=== PATIENT | male | born 1940 | race Two or more races ===

== ENCOUNTER 2025-03-31 19:37 | Emergency (ER) | payer MEDICARE, MEDICAID, SELFPAY ==
[2025-03-31 19:38] VITALS: BMI 27.4
[2025-03-31 20:13] VITALS: BP 166/78; PULSE 64; RESP 18; TEMP 36.9; O2SAT 95
--- NOTE | 2025-03-31 20:26 | XR_ITS ---
Examination: Foot bilateral, 6 views Technique: AP, oblique, lateral views each foot total 6 views Date and time of exam: March 31, 20252028 hours INDICATIONS: Bilateral foot swelling beginning 2 months ago FINDINGS: Bilateral prominent soft tissue swelling dorsum of each foot Prominent bilateral bunion deformities Severe osteopenia No acute fractures No radha areas of cortical bone destruction IMPRESSION: No radha areas of cortical bone destruction, however, elective MRI right and left foot follow-up would best assess for early osteomyelitis as well as soft tissue abscess
--- NOTE | 2025-03-31 20:26 | EDRME_ITS ---
Rapid Medical Screening Exam [facility] Arrival date/time: 03/31/25 19:37 84M with history of HTN presents to ED with daughter for 2 months of intermittent BLE swelling. Patient was given Lasix, which helped, but the feet swelling is persistent. Patient denies pain and SOB. Chief Complaint: Extremity Problem,Nontraumatic Vital signs: Vital Signs Temperature 98.5 F 03/31/25 20:13 Pulse Rate 64 03/31/25 20:13 Respiratory Rate 18 03/31/25 20:13 Blood Pressure 166/78 H 03/31/25 20:13 Pulse Oximetry (%) 95 03/31/25 20:13 Oxygen Delivery Method Room Air 03/31/25 20:13
--- NOTE | 2025-03-31 20:26 | XR_ITS ---
Examination: Ultrasound soft tissue extremities feet TECHNIQUE: Grayscale sonographic images soft tissue right and left feet Date and time: March 31, 2025 2108 hours INDICATIONS: Bilateral foot swelling beginning 2 months ago. FINDINGS: Edema in both feet but no discrete mass or cystic lesion IMPRESSION: Diffuse edema in the feet MRI right and left foot follow-up would be preferable in assessing for soft tissue abscess, osteomyelitis, as clinically warranted
[2025-03-31 20:59] LABS: Basophils # (Auto) 0.1 Thou/mm3 (0.0-0.2); Basophils % (Auto) 1 % (0-2.5); Eosinophils # (Auto) 0.5 Thou/mm3 (0.0-0.5); Eosinophils % (Auto) 8 % (0-10); Hematocrit 44.5 % (41.0-53.0); Hemoglobin 14.6 g/dL (13.5-16.0); Immature Granulocytes Auto 0.01 Thou/mm3 (0.00-0.00); Lymphocytes # (Auto) 2.5 Thou/mm3 (1.0-4.8); Lymphocytes % (Auto) 37 % (10-50); Mean Corpuscular HGB Conc 32.8 g/dl (31.0-37.0); Mean Corpuscular Hemoglobin 30.3 pg (25.0-35.0); Mean Corpuscular Volume 92 fL (80-100); Monocytes # (Auto) 0.6 Thou/mm3 (0.0-0.8); Monocytes % (Auto) 8 % (0-12); Neutrophils # (Auto) 3.0 Thou/mm3 (1.8-7.7); Neutrophils % (Auto) 45 % (37-80); Nucleated Red Blood Cell # 0.00 Thou/mm3 (0.00-0.00); Nucleated Red Blood Cell % 0 /100 WBC (0); Platelet Count 250 Thou/mm3 (140-440); RDW Standard Deviation 46.9 fL (35.1-43.9); Red Blood Count 4.82 Miln/mm3 (4.50-5.90); White Blood Count 6.7 Thou/mm3 (3.8-10.6)
[2025-03-31 21:14] LABS: B-Type Natriuretic Peptide < 20 pg/mL (0-100)
[2025-03-31 21:17] LABS: Alanine Aminotransferase 12 U/L (10-49); Albumin, Serum 4.5 gm/dL (3.4-4.8); Albumin/Globulin Ratio 1.7 (1.2-2.2); Alkaline Phosphatase 67 U/L (46-116); Anion Gap 10 (7-16); Aspartate Amino Transferase 19 U/L (0-34); BUN/Creatinine Ratio 17 Ratio (12-20); Bilirubin,Total 0.4 mg/dL (0.3-1.2); Blood Urea Nitrogen 24 mg/dL (9-23); C-Reactive Protein < 0.5 mg/dL (0.0-0.9); Calcium 10.3 mg/dL (8.3-10.6); Calcium (Corrected) 10.3 mg/dL (8.5-10.1); Carbon Dioxide 28.4 mMol/L (20.0-31.0); Chloride 105 mMol/L (98-107); Creatinine (Component) 1.4 mg/dL (0.6-1.3); Estimated Creatinine Clearance 35.9 mL/min (>60); Globulin 2.6 gm/dL (2.3-3.5); Glucose 87 mg/dL (74-106); Osmolality,Calculated 287 (275-295); Potassium 3.8 mMol/L (3.4-5.1); Sodium 143 mMol/L (136-145); Total Protein 7.1 gm/dL (5.7-8.2); eGFR 50 See Note
--- NOTE | 2025-03-31 21:25 | PD.EDEXREM ---
ED Extremity Problem RME/HPI General Chief complaint: Extremity Problem,Nontraumatic Stated complaint: BLE EDEMA Arrival date/time: 03/31/25 19:37 RME / HPI RME / HPI Narrative: 03/31/25 19:37 84M with history of HTN presents to ED with daughter for 2 months of intermittent BLE swelling. Patient was given Lasix, which helped, but the feet swelling is persistent. Patient denies pain and SOB. --------- Dr. 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 No shortness of breath. No history of CHF, hepatic insufficiency, or renal failure. PMH includes HTN, Parkinson's, no prior CVA/TIA/CO. PSH includes hip replacement. Related Data Home Medications ?Medication ?Instructions ?Recorded ?Confirmed oxybutynin chloride 10 mg 10 mg PO QDAY 09/16/20 01/15/22 tablet,extended release 24 hr benazepril 40 mg tablet 40 mg PO QDAY 12/16/20 01/15/22 omeprazole 40 mg capsule,delayed 40 mg PO QDAY 01/03/21 01/15/22 release clonidine HCl 0.1 mg tablet 0.1 mg PO QHS 01/15/22 01/15/22 furosemide 20 mg tablet 20 mg PO QDAY 01/15/22 01/15/22 Previous Rx's ?Medication ?Instructions ?Recorded cephalexin 500 mg capsule 500 mg PO TID #30 caps 01/06/24 bumetanide 1 mg tablet 1 mg PO QDAY #10 tabs 03/31/25 Allergies Allergy/AdvReac Type Severity Reaction Status Date / Time No Known Allergies Allergy Verified 03/31/25 19:38 Review of Systems Review of Systems Systems Reviewed: All systems reviewed, normal except as documented Past Medical History Past Medical History CARDIAC: Positive Cardiac Disorders, Hypercholesterolemia, Congestive Heart Failure and Hypertension RESPIRATORY: Negative Chronic Obstructive Pulmonary Disease (COPD) GENITOURINARY: Negative Renal Disease ENDOCRINE: Negative Diabetes Mellitus Type 1 or Diabetes Mellitus Type 2 Social History SMOKING STATUS: Never smoker ED Exam Narrative Physical exam: GENERAL APPEARANCE: alert and oriented x 4, well-developed, well-nourished, nontoxic, complains of bilateral foot swelling, no acute distress VITALS: All vitals were reviewed and the pulse ox is 95% on room air, which is normal according to my interpretation. HEENT: Normocephalic, atraumatic; pupils equal, round, reactive to light; EOMI; mucous membranes pink, moist; oropharynx clear NECK: Supple, no JVD LUNGS: Bibasilar rales HEART: Regular rate, regular rhythm; normal S1, S2; no murmurs ABDOMEN: non distended; normal BS; soft, no tenderness, no guarding, no rebound; no masses, no organomegaly, no hernia BACK: no CVA tenderness EXTREMITIES: atraumatic; trace edema down to the level of the ankle bilaterally; diffuse edematous feet with circumferential swelling of all 10 digits NEUROLOGIC: awake; alert and oriented x4; cranial nerves II-XII grossly intact; no focal sensory or motor deficits PSYCHIATRIC: appropriate mood and affect SKIN: warm, dry, normal color; no rashes Course Quality Measures none Orders Category Date Time Status EKG (ED ONLY) *Do not use* NOW Care 03/31/25 21:36 Completed EKG (ED Only) Stat Exams 03/31/25 21:36 Draft US extremity nonvascular LMTD Stat Exams 03/31/25 20:26 Completed XR chest 1V portable Stat Exams 03/31/25 21:36 Completed XR foot comp BI min 3V Stat Exams 03/31/25 20:26 Completed BNP [B-Type Natriuretic Peptide] Stat Lab 03/31/25 20:46 Completed CBC Stat Lab 03/31/25 20:46 Completed CMP [Comprehensive Metabolic Panel] Stat Lab 03/31/25 20:46 Completed CRP [C-Reactive Protein] Stat Lab 03/31/25 20:46 Completed ESR [Sed Rate (ESR)] Stat Lab 03/31/25 20:46 Completed Troponin I Stat Lab 03/31/25 20:46 Completed Bumetanide Inj [Bumex Inj] Med 03/31/25 23:13 Once 1 mg IVP X1 ONE Nitroglycerin Oint 2% [Nitro-paste Oint 2%] Med 03/31/25 23:12 Once 0.5 inch TOP X1 ONE hydrALAZINE INJ [Apresoline Inj] Med 03/31/25 23:12 Once 10 mg IVP X1 ONE Vital Signs Vital signs: Vital Signs Temperature 98.5 F 08/27/25 20:13 Pulse Rate 64 03/31/25 20:13 Respiratory Rate 18 03/31/25 20:13 Blood Pressure 166/78 H 03/31/25 20:13 Pulse Oximetry (%) 95 03/31/25 20:13 Oxygen Delivery Method Room Air 03/31/25 20:13 Extremity Problem MDM Narrative MDM Narrative:: Scribe Attestation: 03/31/25 - Becca Vega am scribing for and in the presence of Dr. Donahue. 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 No shortness of breath. Please see PE findings. Lab markers including CBC and chemistries are essentially unremarkable. No signs of CHF, hepatic insufficiency, or renal failure. Patient arrived hypertensive on arrival and was treated with IV alpha nithya and topical nitrates with gradual reduction in blood pressure. Suspect etiology of bilateral foot edema likely dependent in nature. Will recommend elevation of both extremities in addition to change in diuretic therapy from Lasix to Bumex. Precaution instructions issued. Dx: dependent edema. Patient data External records reviewed:: [facility] previous records (Per chart review, patient was seen here on 01/05/24 for cellulitis.) Clinical information provided by:: patient Social determinants that could affect healthcare access:: none Patient has the following chronic illnesses:: HTN, Parkinson's How is presenting disease/condition affected by chronic disease/condition?: uneffected by Evaluation data The following diagnostics were reviewed and interpreted by me:: lab results, radiology exam(s) and EKG tracing(s) Lab and/or radiology exams considered but not ordered:: none Interpretation Summary: EKG done at 2150, sinus rhythm, rate of 65, no acute pathological ST segment changes, no ectopy, left axis deviation, evidence of LVH by voltage criteria, according to my interpretation. [facility] Signed Patient: CHASIDY NICHOLS. Record#: [id number] Birthdate: 1940 Age/Sex: 84 / M Location: [facility] Attending Dr: Ordering Physician: Paddy Bay DO Date of Service: 03/31/25 Procedure(s): XR chest 1V portable Accession Number(s): [id number] cc: Paddy Bay DO; Joel Ramos MD; Tara Simeon PA-C~ Examination: AP chest single view Technique one AP portable upright chest single view Date and time: March 31, 20252 hours, comparison January 05, 2024 INDICATIONS: Chest pain weakness shortness of breath today. FINDINGS: Mild enlargement cardiac contour Moderate vascular congestion. No lobar pneumonia. Prominent osteopenia IMPRESSION: Moderate vascular congestion, no lobar pneumonia Dictated By: Joel Ramos MD Signed By: <Electronically signed by Joel Ramos MD in OV> 03/31/252148 [facility] Signed [facility] Record#: [id number] Birthdate: 1940 Age/Sex: 84 / M Location: [facility] Attending Dr: Ordering Physician: James Zhang PA-C Date of Service: 03/31/25 Procedure(s): XR foot comp BI min 3V Accession Number(s): [id number] cc: Joel Ramos MD; James Zhang PA-C; Tara Simeon PA-C~ Examination: Foot bilateral, 6 views Technique: AP, oblique, lateral views each foot total 6 views Date and time of exam: March 31, 20252028 hours INDICATIONS: Bilateral foot swelling beginning 2 months ago FINDINGS: Bilateral prominent soft tissue swelling dorsum of each foot Prominent bilateral bunion deformities Severe osteopenia No acute fractures No radha areas of cortical bone destruction IMPRESSION: No radha areas of cortical bone destruction, however, elective MRI right and left foot follow-up would best assess for early osteomyelitis as well as soft tissue abscess Dictated By: Joel Ramos MD Signed By: <Electronically signed by Joel Ramos MD in OV> 03/31/252125 [facility] Signed [facility] [place]. Record#: [id number] Birthdate: 1940 Age/Sex: 84 / M Location: [facility] Attending Dr: Ordering Physician: James Zhang PA-C Date of Service: 03/31/25 Procedure(s): US extremity nonvascular LMTD Accession Number(s): [id number] cc: Joel Ramos MD; James Zhang PA-C; Tara Simeon PA-C~ Examination: Ultrasound soft tissue extremities feet TECHNIQUE: Grayscale sonographic images soft tissue right and left feet Date and time: March 31, 2025 2108 hours INDICATIONS: Bilateral foot swelling beginning 2 months ago. FINDINGS: Edema in both feet but no discrete mass or cystic lesion IMPRESSION: Diffuse edema in the feet MRI right and left foot follow-up would be preferable in assessing for soft tissue abscess, osteomyelitis, as clinically warranted Dictated By: Joel Ramos MD Signed By: <Electronically signed by Joel Ramos MD in OV> 03/31/252134 Medications / Prescriptions Medications or Prescriptions considered but not ordered:: none Medication administrations:: Medication Administration History Bumetanide (Bumetanide Inj 0.25 Mg/Ml Vial 4 Ml) 1 mg IVP X1 ONE Stop: 03/31/25 23:14 Hydralazine HCl (Hydralazine Inj 20 Mg/Ml Vial) 10 mg IVP X1 ONE Stop: 03/31/25 23:13 Nitroglycerin (Nitroglycerin Oint 2% 1 Inch Packet) 0.5 inch TOP X1 ONE Stop: 03/31/25 23:13 see above Consultations Consultation(s) initiated? (list below): No Diagnosis Extremity Problem Differential Diagnosis: cellulitis, lower extremity edema and deep vein thrombosis of lower extremity Most likely diagnosis given after review of the tests above:: see clinical impression below Admission Indicated Admission indicated?: not indicated Admission Request Was there a request for admission?: No Disposition Plan Disposition Plan: Discharge Discharge Attestation Discharge Attestation: The patient and all family members were given an opportunity to ask questions and understood the discharge instructions. Discharge instructions specifically effects, indications for sooner follow up or return to the emergency department, and the expected course of current diagnosis. Patient condition: Stable Discharge Plan Plan Patient Disposition: HOME (Self Care) Discharge Disposition comment: Stable Prescriptions/Referrals Prescriptions/Med Rec: New bumetanide 1 mg tablet 1 mg PO QDAY Qty: 10 0RF No Action oxybutynin chloride 10 mg tablet extended release 24hr 10 mg PO QDAY furosemide 20 mg tablet 20 mg PO QDAY clonidine HCl 0.1 mg tablet 0.1 mg PO QHS benazepril 40 mg tablet 40 mg PO QDAY omeprazole 40 mg capsule,delayed release(DR/EC) 40 mg PO QDAY cephalexin 500 mg capsule 500 mg PO TID Qty: 30 0RF Referrals: Tara Simeon PA-C [Primary Care Provider] - In 1 week Problem List Clinical Impression: Dependent edema Patient/Caregiver Discharge Instructions Discharge Activity: activity as tolerated Other Activity Instructions:: Maintain elevation of both extremities particularly at night. Change Lasix to Bumex for 3 days only. Utilize compression hose. Follow-up with primary care doctor in 5 to 7 days return if worsening Education Materials: ED Lymphedema Additional Instructions: Maintain elevation of both extremities particularly at night. Change Lasix to Bumex for 3 days only. Utilize compression hose. Follow-up with primary care doctor in 5 to 7 days return if worsening Print Language: Latvian Stand Alone Forms: [facility] Info., Patient Portal Info Letter
[2025-03-31 21:27] LABS: Sed Rate (ESR) 35 mm/hr (0-20)
--- NOTE | 2025-03-31 21:36 | XR_ITS ---
Examination: AP chest single view Technique one AP portable upright chest single view Date and time: March 31, 2025 2142 hours, comparison January 05, 2024 INDICATIONS: Chest pain weakness shortness of breath today. FINDINGS: Mild enlargement cardiac contour Moderate vascular congestion. No lobar pneumonia. Prominent osteopenia IMPRESSION: Moderate vascular congestion, no lobar pneumonia
--- NOTE | 2025-03-31 21:36 | EKG_ITS ---
[facility] (Former[facility] Test Date: 2025-03-31 Pat Name: CHASIDY NICHOLS Department: Room: - Gender: Male [employer] Accessories [employer]ic: : 1940 Requested By: Paddy Nash Order Number: [id number] Reading MD: Paddy Nash Measurements Intervals [place] Rate: 65 P: 16 OK: 268 QRS: -27 QRSD: 108 T: 15 QT: 412 QTc: 428 Interpretive Statements SINUS RHYTHM WITH FIRST DEGREE AV BLOCK BORDERLINE LEFT AXIS DEVIATION [QRS AXIS < -20] LEFT VENTRICULAR HYPERTROPHY AND ST-T CHANGE [VOLTAGE CRITERIA PLUS ST/T ABNORMALITY] No previous ECG available for comparison /store/S0/[id number]/ecg/[id number].pdf
[2025-03-31 21:39] VITALS: BP 186/80; PULSE 63; RESP 16; O2SAT 96
[2025-03-31 21:54] VITALS: BP 190/90; PULSE 63; RESP 15; TEMP 36.5; O2SAT 97
[2025-03-31 21:59] LABS: Troponin I < 0.020 ng/mL (0.0-0.045)
[2025-03-31 23:32] VITALS: BP 185/83; PULSE 63
[2025-03-31] MEDS: BUMETANIDE INJ 0.25 MG/ML VIAL 4 ML 1 MG IVP (23:32)
[2025-03-31 23:33] VITALS: BP 185/83; PULSE 65
[2025-03-31] MEDS: hydrALAZINE INJ 20 MG/ML VIAL 10 MG IVP (23:33)
[2025-03-31 23:39] VITALS: BP 174/83; PULSE 63; RESP 16; O2SAT 97
== END 2025-03-31 23:41 | disposition home or self-care (01) ==
PROVIDERS: Physician Assistant; Emergency Provider Emergency Medicine; PCP Physician Assistant
DX: R60.0 Localized edema (principal); M79.89 Other specified soft tissue disorders; I11.0 Hypertensive heart disease with heart failure; I50.9 Heart failure, unspecified; R09.89 Other specified symptoms and signs involving the circulatory and respiratory systems; E78.00 Pure hypercholesterolemia, unspecified
CPT/HCPCS: 36415; 71045; 73630; 76882; 80053; 83880; 84484; 85025; 85652; 86140; 93005; 96374; 96375; 99283; J0360; J3490